=== PATIENT | male | born 1975 | race Caucasian/White ===

== ENCOUNTER 2024-01-23 10:05 | Emergency (ER) | payer BC, OTHER ==
[2024-01-23 10:21] VITALS: BP 122/86; PULSE 96; RESP 20; TEMP 99; BMI 47.0
[2024-01-23] MEDS: ACETAMINOPHEN 1000 MG/100 ML BAG IVPB ONE (11:40)
[2024-01-23] MEDS ORDERED: ACETAMINOPHEN INJECTION 100 ML IVPB ONE (11:41)
[2024-01-23 11:49] LABS: INR 0.94 (0.83-1.09); PROTHROMBIN TIME (PATIENT) 10.7 SEC (9.7-13.0)
[2024-01-23 11:50] LABS: HEMATOCRIT 47.8 % (35.4-49); HEMOGLOBIN 15.1 G/dL (11.7-16.9); MCH 27.9 pg (25.7-33.7); MCHC 31.6 g/dl (32.0-35.9); MEAN CELL VOLUME 88.4 fl (80-96); MEAN PLT VOLUME 9.6 fl (7.5-11.1); PLATELET COUNT 245.4 10^3/uL (134-434); RBC 5.41 10^6/uL (4.00-5.60); RDW 15.7 % (11.9-15.9); WHITE BLOOD COUNT 8.8 10^3/uL (4.0-10.8)
[2024-01-23 11:52] LABS: ACTIVATED PTT 34.4 SECONDS (25.2-36.5)
[2024-01-23 11:56] LABS: ALBUMIN 4.3 g/dl (3.4-5.0); BILIRUBIN,TOTAL 0.6 mg/dl (0.2-1); CALCIUM 9.2 mg/dl (8.5-10.1); CREATININE 1.2 mg/dl (0.6-1.3); POTASSIUM 4.4 mmol/L (3.5-5.1); TOT PROT 6.9 g/dl (6.4-8.2)
[2024-01-23 12:55] LABS: OVALOCYTE 2+; PLATELET ESTIMATE ADEQUATE
[2024-01-23] MEDS ORDERED: KETOROLAC TROMETHAMINE 15 MG/ML VIAL ONE (13:28)
[2024-01-23] MEDS: KETOROLAC TROMETHAMINE 15 MG/ML VIAL IVPUSH ONE (13:33)
[2024-01-23 14:03] LABS: N-TERMINAL BNP 16.7 pg/ml (5-125)
== END 2024-01-23 13:51 | disposition home or self-care (01) ==
LOC: FER 10:05
PROC: 3E033NZ Introduction of Analgesics, Hypnotics, Sedatives into Peripheral Vein, Percutaneous Approach (ICD-10-PCS; principal; 2024-01-23)
PROC: 3E0333Z Introduction of Anti-inflammatory into Peripheral Vein, Percutaneous Approach (ICD-10-PCS; 2024-01-23)
DX: M54.9 Dorsalgia, unspecified (principal); R06.02 Shortness of breath; R05.9 Cough, unspecified; M25.512 Pain in left shoulder; R07.9 Chest pain, unspecified; Z20.822 Contact with and (suspected) exposure to COVID-19
CPT/HCPCS: 0241U-QW; 36415; 71045-TC-FY; 80053; 83880; 84484; 85027; 85379; 85610; 85730; 93005; 99285-25; J0131